=== PATIENT | female | born 1995 | race Caucasian/White ===

== ENCOUNTER 2021-03-17 13:40 | Inpatient (IN) | payer OTHER ==
[~2021-03-17 13:40] MED LIST: Bupivacaine 0.25% 10 ML SDV ONE; Lidocaine 1.5% with EPINEPHrine 1:200,000 5 ML Amp ONE
--- NOTE | 2021-03-17 15:11 | US ---
Limited obstetrical ultrasound: Multiple real-time images were obtained transabdominally. Comparison: No prior obstetrical imaging is available. Dates: Current ultrasound: DANIKA 07/24/21, gestational age 21 weeks 4 days presentation: Cephalic Placenta: Anterior with no findings of placenta previa Amniotic fluid: ARMOND 6.45 cm Measurements: BPD: 5.18 cm - 21 weeks 5 days Head circumference: 18.63 cm - 21 weeks 0 days Abdominal circumference: 16.80 cm - 21 weeks 6 days Femur length: 3.64 cm - 21 weeks 4 days Estimated weight: 434 g (0 lbs. 15 oz.), estimated weight is at the 47th percentile Heart rate: No heart activity is seen and was evaluated 2 separate times during this exam. Other findings: Small pericardial effusion is seen. Impression: 1. Single intrauterine fetus currently cephalic in presentation. Dates as noted above. 2. No heart activity is seen. Small pericardial effusion is seen. Ordering physician was present at time of exam. Diagnostic code #5
[2021-03-17] MEDS ORDERED: Lidocaine 4% Crm 5 Gm with Transparent Dressing Kit TOP ONE (15:39)
[2021-03-17] MEDS ORDERED: Nalbuphine 10 MG/1 ML Vial IVPUSH PRN (15:51)
[2021-03-17] MEDS ORDERED: Oxytocin/Lactated Ringers 10 UNIT/1,000 ML BAG IV SCH (16:00)
--- NOTE | 2021-03-17 16:09 | PCM.LDHP ---
L&D History of Present Illness - General Date of Service: 03/17/21 Admit Problem/Dx: Patient Status Order with Admit Dx/Problem 03/17/21 13:51 Patient Status [ADT] Routine Admission Diagnosis/Problem Admission Diagnosis/Problem - History of Present Illness Introduction:: 25 year old at 22w2 here for cramping and slight spotting. Upon presentation no heart tones on doppler and ultrasound was consistent with that. Patient informed. Had been feeling movement until 2 days ago. PNC with Dr. Smith complicated by asthma and vulvodynia. Recent cellulitis. Fairly recent covid exposure with subsequent fever and no testing. Discussed antibody testing. - Related Data Allergies/Adverse Reactions: Allergies Allergy/AdvReac Type Severity Reaction Status Date / Time peanut Allergy Anaphylactic Verified 03/17/21 13:55 Shock Home Medications: Home Meds Pnv No.163/Iron/Folate No.10 [Pnv Tabs 20-1 Tablet] 1 each PO DAILY 03/17/21 [History] cephALEXin [Cephalexin] 500 mg PO Q12HR 03/17/21 [History] H&P Review of Systems - Review of Systems: Review Of Systems: See Below General: Reports: No Symptoms HEENT: Reports: No Symptoms Pulmonary: Reports: No Symptoms Cardiovascular: Reports: No Symptoms Gastrointestinal: Reports: No Symptoms Genitourinary: Reports: No Symptoms Musculoskeletal: Reports: No Symptoms Skin: Reports: No Symptoms Psychiatric: Reports: No Symptoms Neurological: Reports: No Symptoms Hematologic/Lymphatic: Reports: No Symptoms Immunologic: Reports: No Symptoms L&D Exam - Exam Exam: See Below - Vital Signs Vital Signs: Last Vital Signs Temp 37.4 C 03/17/21 13:51 Pulse 114 H 03/17/21 13:51 Resp 16 03/17/21 13:51 BP 121/74 03/17/21 13:51 Pulse Ox 100 03/17/21 13:51 Weight: 58.967 kg - OB Specific Contraction Intensity: Irritability Movement: Not Appreciated Heart Tones: Not [place] - Exam General: Alert, Oriented HEENT: Conjunctiva Clear, EACs Clear, PERRLA Neck: Supple, Trachea Midline Lungs: Clear to Auscultation Cardiovascular: Regular Rate GI/Abdominal Exam: Normal Bowel Sounds, Soft Rectal Exam: Normal Exam Genitourinary: Normal external exam Back Exam: Normal Inspection, Full Range of Motion Extremities: Normal Inspection, Normal Range of Motion Skin: Warm, Dry, Intact Neurological: Cranial Nerves Intact, Reflexes Equal Bilateral Psychiatric: Alert, Normal Affect, Normal Mood - Patient Data Lab Results Last 24 hrs: Laboratory Results - last 24 hr 03/17/21 Range/Units 13:53 Urine Color Yellow (Yellow) Urine Appearance Clear (Clear) Urine pH 7.0 (5.0-8.0) Ur Specific [place] 1.010 (1.005-1.030) Urine Protein Negative (Negative) Urine Glucose (UA) Negative (Negative) Urine Ketones Negative (Negative) Urine Occult Blood Trace-lysed H (Negative) Urine Nitrite Negative (Negative) Urine Bilirubin Negative (Negative) Urine Urobilinogen 0.2 (0.2-1.0) Ur Leukocyte Esterase Negative (Negative) Urine RBC 5-10 H (0-5) /hpf Urine WBC 0-5 (0-5) /hpf Ur Epithelial Cells 10-20 H (0-5) /hpf Urine Bacteria Few (FEW) /hpf Urine Mucus Not seen (FEW) /hpf Problem List Initiated/Reviewed/Updated: Yes Orders Last 24hrs: Active Orders 24 hr Category Date Time Status Patient Status [ADT] Routine ADT 03/17/21 13:51 Active Activity as Tolerated [RC] PFP Care 03/17/21 15:52 Ordered Communication Order [RC] ASDIRECTED Care 03/17/21 15:52 Ordered Heart Tones [RC] ASDIRECTED Care 03/17/21 16:01 Ordered Notify Provider [RC] PFP Care 03/17/21 15:52 Ordered Notify Provider [RC] PRN Care 03/17/21 15:52 Ordered Peripheral IV Care [RC] . DIRECTED Care 03/17/21 16:01 Ordered Vital Signs [RC] PER UNIT ROUTINE Care 03/17/21 13:51 Active Vital Signs [RC] PER UNIT ROUTINE Care 03/17/21 15:52 Ordered Regular Diet [DIET] Diet 03/17/21 Breakfast Ordered A1C [GLYCOSYLATED HEMOGLOBIN,HGBA1C] [CHEM] Routine Lab 03/17/21 15:46 Ordered ANTICARDIOLIPIN AB, IGG/M, QN [REF] Stat Lab 03/17/21 15:45 Ordered BETA-2 GLYCOPROTEIN I AB,G/M [REF] Stat Lab 03/17/21 15:46 Ordered CBC WITH MANUAL DIFF [HEME] Stat Lab 03/17/21 15:49 Ordered CMP [COMPREHENSIVE METABOLIC PN,CMP] [CHEM] Routine Lab 03/17/21 15:50 Ordered CORONAVIRUS COVID-19 PAMELA [MOLEC] Stat Lab 03/17/21 16:01 Ordered DRUG SCREEN, URINE [URCHEM] Stat Lab 03/17/21 15:42 Ordered FIBRINOGEN [COAG] Routine Lab 03/17/21 15:50 Ordered INR,PT,PROTHROMBIN TIME [COAG] Routine Lab 03/17/21 15:50 Ordered LUPUS ANTICOAGULANT PANEL [REF] Stat Lab 03/17/21 15:44 Ordered PTT,PARTIAL THROMBOPLSTIN TIME [COAG] Routine Lab 03/17/21 15:50 Ordered RAPID PLASMA REAGIN,RPR [CHEM] Routine Lab 03/17/21 15:43 Ordered [id number]-SCI AB [REF] Stat Lab 03/17/21 15:41 Ordered TYPE AND SCREEN [BBK] AM Lab 03/17/21 05:11 Ordered TYPE AND SCREEN [BBK] AM Lab 03/18/21 05:11 Ordered Lactated Ringers [Ringers, Lactated] 1,000 ml Med 03/17/21 16:00 Ordered IV ASDIRECTED Nalbuphine [Nubain] Med 03/17/21 15:51 Ordered 10 mg IVPUSH Q2H PRN Oxytocin/Lactated Ringers [Pitocin in LR 10 Units/1,000 Med 03/17/21 16:00 Ordered ML] 10 unit in 1,000 ml IV .CONTINUOUS Sodium Chloride 0.9% [Saline Flush] Med 03/17/21 21:00 Ordered 10 ml FLUSH 0900,2100 miSOPROStoL [Cytotec] Med 03/17/21 16:02 Ordered 400 mcg VAG Q3HR Electronic Heart Tones Ext w TOCO [WOMSER] Oth 03/17/21 15:52 Ordered Routine Electronic Heart Tones Internal [WOMSER] Per Unit Oth 03/17/21 15:52 Ordered Routine Peripheral IV Insertion Adult [OM.PC] Routine Oth 03/17/21 15:52 Ordered Resuscitation Status Routine Resus Stat 03/17/21 13:51 Ordered Medication Orders Lactated Ringer's (Ringers, Lactated) 1,000 mls @ 100 mls/hr IV ASDIRECTED ADITYA Oxytocin/Lactated Ringer's (Pitocin In Lr 10 Units/1,000 Ml) 10 unit in 1,000 mls @ 100 mls/hr IV .CONTINUOUS ADITYA Misoprostol (Misoprostol 25 Mcg (1/4 Of 100 Mcg) Tab) 400 mcg VAG Q3HR [facility] Nalbuphine HCl (Nalbuphine 10 Mg/1 Ml Vial) 10 mg IVPUSH Q2H PRN PRN Reason: Pain Sodium Chloride (Sodium Chloride 0.9% 10 Ml Syringe) 10 ml FLUSH 0900,2100 [facility] Assessment/Plan Comment:: Discussed evaluation for still . Ordered extensive laboratory. Kit for eval in lab fridge. Plan induction today. Discussed options. Cytotec 400 mcg q3
[2021-03-17] MEDS ORDERED: Misoprostol 200 MCG Tab ONE (16:18)
[2021-03-17] MEDS ORDERED: LORazepam 2 MG/ML SDV ONE (16:45)
[2021-03-17] MEDS: LORazepam 2 MG/ML SDV IVPUSH PRN ×2 (16:49→20:43)
[2021-03-17] MEDS: Misoprostol 25 MCG (1/4 of 100 MCG) Tab VAG SCH ×2 (18:50→23:48)
[2021-03-17] MEDS: Lactated Ringers 1,000 ML IV SCH ×2 (19:41→21:57)
[2021-03-17] MEDS ORDERED: ePHEDrine 50 MG/ML SDV IVPUSH PRN (20:23)
[2021-03-17] MEDS ORDERED: fentaNYL 100 MCG/2 ML SDV EPIDUR PRN (20:23)
[2021-03-17] MEDS ORDERED: diphenhydrAMINE 50 MG/ML SDV IVPUSH PRN (20:23)
[2021-03-17] MEDS ORDERED: Bupivacaine/fentaNYL/NS 100 ML Bag EPIDUR PRN (20:23)
[2021-03-17] MEDS ORDERED: Sodium Chloride 0.9% 10 ML Syringe FLUSH SCH (21:00)
--- NOTE | 2021-03-17 21:12 | PCM.PREANE ---
Preanesthetic Assessment - Procedure Proposed Procedure: Continuous labor epidural - Anesthesia/Transfusion/Family Hx Anesthesia History: No Prior Anesthesia Transfusion History: No Prior Transfusion(s) - Review of Systems General: No Symptoms Pulmonary: No Symptoms Cardiovascular: No Symptoms Gastrointestinal: No Symptoms Neurological: No Symptoms Other: Reports: None - Physical Assessment Vital Signs: Last Vital Signs Temp 99.3 F 03/17/21 13:51 Pulse 114 H 03/17/21 13:51 Resp 16 03/17/21 13:51 BP 121/74 03/17/21 13:51 Pulse Ox 100 03/17/21 13:51 Height: 1.65 m Weight: 58.967 kg ASA Class: 2 Mental Status: Alert & Oriented x3 Airway Class: Mallampati = 1 Dentition: Reports: Normal Dentition Thyro-Mental Finger Breadths: 3 Mouth Opening Finger Breadths: 3 ROM/Head Extension: Full Lungs: Clear to Auscultation, Normal Respiratory Effort Cardiovascular: Regular Rate, Regular Rhythm - Lab Values: Laboratory Last Values WBC 11.37 K/mm3 (3.98-10.04) H 03/17/21 16:16 RBC 4.38 M/mm3 (3.98-5.22) 03/17/21 16:16 Hgb 13.6 gm/dl (11.2-15.7) 03/17/21 16:16 Hct 39.2 % (34.1-44.9) 03/17/21 16:16 MCV 89.5 fl (79.4-94.8) 03/17/21 16:16 MCH 31.1 pg (25.6-32.2) 03/17/21 16:16 MCHC 34.7 g/dl (32.2-35.5) 03/17/21 16:16 RDW Std Deviation 39.9 fL (36.4-46.3) 03/17/21 16:16 Plt Count 247 K/mm3 (182-369) 03/17/21 16:16 MPV 9.2 fl (9.4-12.3) L 03/17/21 16:16 Neutrophils % (Manual) 80 % (40-60) H 03/17/21 16:16 Band Neutrophils % 1 % (0-10) 03/17/21 16:16 Lymphocytes % (Manual) 9 % (20-40) L 03/17/21 16:16 Atypical Lymphs % 8 % 03/17/21 16:16 Monocytes % (Manual) 2 % (2-10) 03/17/21 16:16 Eosinophils % (Manual) 0 % (0.7-5.8) L 03/17/21 16:16 Basophils % (Manual) 0 (0.1-1.2) L 03/17/21 16:16 Platelet Estimate Adequate 03/17/21 16:16 Plt Morphology Comment Normal 03/17/21 16:16 Polychromasia 1+ slight 03/17/21 16:16 RBC Morph Comment Not Reportable 03/17/21 16:16 PT 9.8 SECONDS (9.7-12.0) 03/17/21 16:16 INR < 0.93 03/17/21 16:16 APTT 27.5 SECONDS (21.7-31.4) 03/17/21 16:16 Fibrinogen 328 mg/dL (187-446) 03/17/21 16:16 Sodium 141 mEq/L (136-145) 03/17/21 16:16 Potassium 3.1 mEq/L (3.5-5.1) L 03/17/21 16:16 Chloride 104 mEq/L (98-107) 03/17/21 16:16 Carbon Dioxide 27 mEq/L (21-32) 03/17/21 16:16 Anion Gap 13.1 (5-15) 03/17/21 16:16 BUN 6 mg/dL (7-18) L 03/17/21 16:16 Creatinine 0.8 mg/dL (0.55-1.02) 03/17/21 16:16 Est Cr Clr Drug Dosing 96.73 mL/min 03/17/21 16:16 Estimated GFR (MDRD) > 60 mL/min (>60) 03/17/21 16:16 BUN/Creatinine Ratio 7.5 (14-18) L 03/17/21 16:16 Glucose 92 mg/dL (70-99) 03/17/21 16:16 Hemoglobin A1c 5.0 % (-5.6) 03/17/21 16:16 Calcium 8.0 mg/dL (8.5-10.1) L 03/17/21 16:16 Total Bilirubin 0.5 mg/dL (0.2-1.0) 03/17/21 16:16 AST 28 U/L (15-37) 03/17/21 16:16 ALT 24 U/L (14-59) 03/17/21 16:16 Alkaline Phosphatase 104 U/L (46-116) 03/17/21 16:16 Total Protein 7.0 g/dl (6.4-8.2) 03/17/21 16:16 Albumin 3.3 g/dl (3.4-5.0) L 03/17/21 16:16 Globulin 3.7 gm/dL 03/17/21 16:16 Albumin/Globulin Ratio 0.9 (1-2) L 03/17/21 16:16 Urine Color Yellow (Yellow) 03/17/21 13:53 Urine Appearance Clear (Clear) 03/17/21 13:53 Urine pH 7.0 (5.0-8.0) 03/17/21 13:53 Ur Specific [place] 1.010 (1.005-1.030) 03/17/21 13:53 Urine Protein Negative (Negative) 03/17/21 13:53 Urine Glucose (UA) Negative (Negative) 03/17/21 13:53 Urine Ketones Negative (Negative) 03/17/21 13:53 Urine Occult Blood Trace-lysed (Negative) H 03/17/21 13:53 Urine Nitrite Negative (Negative) 03/17/21 13:53 Urine Bilirubin Negative (Negative) 03/17/21 13:53 Urine Urobilinogen 0.2 (0.2-1.0) 03/17/21 13:53 Ur Leukocyte Esterase Negative (Negative) 03/17/21 13:53 Urine RBC 5-10 /hpf (0-5) H 03/17/21 13:53 Urine WBC 0-5 /hpf (0-5) 03/17/21 13:53 Ur Epithelial Cells 10-20 /hpf (0-5) H 03/17/21 13:53 Urine Bacteria Few /hpf (FEW) 03/17/21 13:53 Urine Mucus Not seen /hpf (FEW) 03/17/21 13:53 SARS-CoV-2 RNA (PAMELA) Positive (NEGATIVE) H 03/17/21 15:25 Blood Type O POSITIVE 03/17/21 16:16 Gel Antibody Screen Negative 03/17/21 16:16 - Allergies Allergies/Adverse Reactions: Allergies Allergy/AdvReac Type Severity Reaction Status Date / Time peanut Allergy Anaphylactic Verified 03/17/21 13:55 Shock - Acknowledgements Anesthesia Type Planned: Epidural Pt an Appropriate Candidate for the Planned Anesthesia: Yes Alternatives and Risks of Anesthesia Discussed w Pt/Guardian: Yes Pt/Guardian Understands and Agrees with Anesthesia Plan: Yes PreAnesthesia Questionnaire Respiratory History: Reports: Asthma Gastrointestinal History: Reports: None GREENSKEEPER History: Reports: , Other (See Below) Other OB/BYN History: vulvodynia Musculoskeletal History: Reports: Other (See Below) (Marked levorotated scoliosis) Psychiatric History: Reports: Anxiety Dermatologic History: Reports: Cellulitis - Past Surgical History Other Respiratory Surgeries/Procedures: last used inhaler 5 months ago - SUBSTANCE USE Tobacco Use Status *Q: Former Tobacco User Tobacco Use Within Last Twelve Months: Vaping Second Hand Smoke Exposure: No Recreational Drug Use History: No - HOME MEDS Home Medications: Home Meds Pnv No.163/Iron/Folate No.10 [Pnv Tabs 20-1 Tablet] 1 each PO DAILY 03/17/21 [History] cephALEXin [Cephalexin] 500 mg PO Q12HR 03/17/21 [History] - CURRENT (IN HOUSE) MEDS Current Meds: Current Medications Diphenhydramine HCl (Diphenhydramine 50 Mg/Ml Sdv) 25 mg IVPUSH Q6H PRN PRN Reason: pruritis Ephedrine Sulfate (Ephedrine 50 Mg/Ml Sdv) 5 mg IVPUSH ASDIRECTED PRN PRN Reason: Hypotension Fentanyl (Fentanyl 100 Mcg/2 Ml Sdv) 100 mcg EPIDUR Q3H PRN PRN Reason: Pain Last Admin: 03/17/21 20:36 Dose: 100 mcg Documented by: Fentanyl/Bupivacaine HCl (Bupivacaine/Fentanyl/Ns 100 Ml Bag) 100 ml EPIDUR ASDIRECTED PRN PRN Reason: Pain Last Admin: 03/17/21 20:37 Dose: 100 ml Documented by: Lactated Ringer's (Ringers, Lactated) 1,000 mls @ 100 mls/hr IV ASDIRECTED ADITYA Last Admin: 03/17/21 19:41 Dose: 100 mls/hr Documented by: Oxytocin/Lactated Ringer's (Pitocin In Lr 10 Units/1,000 Ml) 10 unit in 1,000 mls @ 100 mls/hr IV .CONTINUOUS ADITYA Lorazepam (Lorazepam 2 Mg/Ml Sdv) 2 mg IVPUSH Q4H PRN PRN Reason: Anxiety Last Admin: 03/17/21 20:43 Dose: 2 mg Documented by: Misoprostol (Misoprostol 25 Mcg (1/4 Of 100 Mcg) Tab) 400 mcg VAG Q3H ADITYA Nalbuphine HCl (Nalbuphine 10 Mg/1 Ml Vial) 10 mg IVPUSH Q2H PRN PRN Reason: Pain Last Admin: 03/17/21 19:04 Dose: 10 mg Documented by: Sodium Chloride (Sodium Chloride 0.9% 10 Ml Syringe) 10 ml FLUSH 0900,2100 ADITYA Discontinued Medications Lidocaine HCl (Lidocaine 4% Crm 5 Gm With Transparent Dressing Kit) 1 each TOP ASDIRECTED ONE Stop: 03/17/21 15:40 Last Admin: 03/17/21 15:53 Dose: 1 dose Documented by: Lorazepam (Lorazepam 2 Mg/Ml Sdv) Confirm Administered Dose 2 mg .ROUTE .STK-MED ONE Stop: 03/17/21 16:46 Last Admin: 03/17/21 17:32 Dose: Not Given Documented by: Misoprostol (Misoprostol 25 Mcg (1/4 Of 100 Mcg) Tab) 400 mcg VAG Q3HR ADITYA Last Admin: 03/17/21 18:50 Dose: Not Given Documented by: Misoprostol (Misoprostol 200 Mcg Tab) Confirm Administered Dose 400 mcg .ROUTE .STK-MED ONE Stop: 03/17/21 16:19 Last Admin: 03/17/21 17:13 Dose: 400 mcg Documented by:
--- NOTE | 2021-03-17 23:06 | PCM.SN.2 ---
- Free Text/Narrative Note: Stage I - Patient presented with cramping and demise. Cytotec 400 mcg vaginally. Epidural for anesthesia. STage II - of intact fetus 2120. Cord clamped and cut. Minimal bleeding. Weight and measurements pending. 600 mcg rectal cytotec STage III - of intact placenta 2220. To pathology.
[2021-03-17] MEDS ORDERED: Witch Hazel Medicated Pads 40/Jar TOP PRN (23:45)
[2021-03-17] MEDS ORDERED: Ibuprofen 600 MG Tab PO PRN (23:45)
[2021-03-17] MEDS ORDERED: Benzocaine/Menthol 20%-0.5% Spray 78 GM Cannister TOP PRN (23:45)
[2021-03-17] MEDS ORDERED: Acetaminophen/oxyCODONE 325-5 MG Tab PO PRN (23:45)
[2021-03-18] MEDS: Acetaminophen/oxyCODONE 325-5 MG Tab PO PRN ×3 (00:27→11:33)
[2021-03-18] MEDS ORDERED: Misoprostol 200 MCG Tab RECTAL ONE (03:15)
--- NOTE | 2021-03-18 09:37 | PCM.TH.SN ---
- Free Text/Narrative Note: Procedure note: Procedure: Biopsy of the right anterior thigh of the fetus to obtain tissue for chromosomal MicroArray evaluation and other testing as indicated. Upon request of the patient a sample of tissue was obtained from the right anterior thigh of the baby. Appropriate documents/consents were signed. Visual evaluation of the baby showed no evidence of potential cause of the demise. For delivering physician there is no evidence of cord accident or other apparent etiology of the demise. After discussions held with patient concerning attaining specimen from the anterior thigh of the fetus the specimens obtained. The anterior thigh is prepped in usual fashion with water. No Betadine or other antiseptic solution was used. Using a scalpel the tissue from the anterior thigh including skin, subcutaneous, fascial and muscle tissue was obtained. Approximately 1 cm x 2-3 cm of tissue was obtained. This was placed in the dilution accompanying the kit. These tissues will be sent for chromosomal MicroArray evaluation and other testing as indicated. TeleHealth - TeleHealth Patient Service Facility: [facility]: [facility] Informed Consent: Telemedicine Audio/Visual Informed Consent: The risks, benefits, and alternatives to the telehealth visit were explained to the patient and the patient consented to this modality of care. The telehealth visit was carried out via a secure, web-based conferencing system. This telemedicine service was a real-time, two-way interactive video and communication between the patient and the provider. All the parties involved were identified and approved by the patient prior to the visit. Any physical exam was assisted by the patient. Unless noted otherwise, the provider was located at their usual clinic location, and the patient was at their place of residence. Patient identity was confirmed by having the patient state their name and date of . All communications with the patient (verbal, audiovisual, and written) were documented in the patients medical record per documentation standards.
--- NOTE | 2021-03-18 09:44 | PCM.DCSUM1 ---
Discharge Summary - Hospital Course Free Text/Narrative:: Celine was admitted on 03/17/2021 with slight vaginal bleeding. heart tones were not obtained and ultrasound confirmed demise. Estimated gestational age 22 weeks. Discussion was held with patient concerning delivery of the baby which would include Cytotec induction. She agreed to this and this was accomplished. Stage I - Patient presented with cramping and demise. Cytotec 400 mcg vaginally. Epidural for anesthesia. Stage II - of intact fetus 2120. Cord clamped and cut. Minimal bleeding. Weight and measurements pending. 600 mcg rectal cytotec Stage III - of intact placenta 2220. To pathology. patient appears to be doing as well as possible concerning the emotional aspect of this. She appears to be grieving appropriately. She is asking for some medication for anxiety. She does not feel she needs anything for depression. Presently she is on vitamins and cephalexin for dermatitis. Discharge instructions are given. Discussions held with patient as to potential causes of demise/stillbirth when apparent etiology is identified. She is agreed to undergo blood testing and tissue sampling to attempt to determine potential cause. Consent is signed and biopsy of the right anterior thigh is accomplished for this specimen. Discharge instructions: 1. Discharge home 2. Diet, activity and follow-up discussed with patient. 3. Precautions given concern increased pain, bleeding, temperature, signs/symptoms of DVT/PE. 4. Medications per home medication list was printed, discussed with and given to the patient. 5. Return to clinic-[facility]. [facility] in 1 weeks. Diagnosis: 22-week demisedelivered. Etiology of demise not identified. Condition: Good. Grieving appears appropriate. Diagnosis: Stroke: No - Discharge Data Discharge Date: 03/18/21 Discharge Disposition: Home, Self-Care 01 Condition: Good - Referral to Home Health Primary Care Physician: PCP None - Discharge Diagnosis/Problem(s) (1) 22 weeks gestation of SNOMED Code(s): 74741053 ICD Code: Z3A.22 - 22 WEEKS GESTATION OF Status: Acute Current Visit: Yes (2) demise SNOMED Code(s): 295805728 ICD Code: [id number] - Status: Acute Current Visit: Yes (3) COVID SNOMED Code(s): 672898759 ICD Code: U07.1 - COVID-19 Status: Acute Current Visit: Yes - Patient Instructions Diet: Usual Diet as Tolerated Activity: As Tolerated (No intercourse or tampons until bleeding resolves) Driving: May Drive Today Showering/Bathing: May Shower (May take a bath) Notify Provider of: Fever, Increased Pain, Drainage, Nausea and/or Vomiting Other/Special Instructions: Patient to monitor emotional status closely. Will call if depression or significant anxiety occurs. Mother will be with her to oversee her status. - Discharge Plan Prescriptions/Med Rec: LORazepam [Ativan] 0.5 mg PO DAILY PRN #5 tablet PRN Reason: Anxiety Home Medications: Home Meds Pnv No.163/Iron/Folate No.10 [Pnv Tabs 20-1 Tablet] 1 each PO DAILY 03/17/21 [History] cephALEXin [Cephalexin] 500 mg PO Q12HR 03/17/21 [History] Ibuprofen [Motrin] 600 mg PO Q6H PRN tablet 03/18/21 [Rx] LORazepam [Ativan] 0.5 mg PO DAILY PRN #5 tablet 03/18/21 [Rx] - Discharge Summary/Plan Comment DC Time >30 min.: No Total # of Minutes for Discharge Time: 20 Discharge Summary/Plan Comment: Discharge instructions: 1. Discharge home 2. Diet, activity and follow-up discussed with patient. 3. Precautions given concern increased pain, bleeding, temperature, signs/symptoms of DVT/PE. Also signs of depression or significant anxiety. 4. Medications per home medication was printed, discussed with and given to the patient. 5. Return to clinic-[facility]. [facility] in weeks. Diagnosis: 22-week demisedelivered. Etiology of demise not identified Condition: Goodpatient appears to be grieving appropriately. - Patient Data Vitals - Most Recent: Last Vital Signs Temp 37.4 C 03/18/21 07:33 Pulse 91 03/18/21 07:33 Resp 16 03/18/21 07:33 BP 117/74 03/18/21 07:33 Pulse Ox 99 03/18/21 07:33 Weight - Most Recent: 58.967 kg I&O - Last 24 hours: Intake & Output 03/17/21 03/18/21 03/18/21 22:59 06:59 14:59 Intake Total 600 3000 Output Total 50 Balance 600 2950 Lab Results - Last 24 hrs: Laboratory Results - last 24 hr 03/17/21 03/17/21 03/17/21 Range/Units 13:53 13:53 15:25 WBC (3.98-10.04) K/mm3 RBC (3.98-5.22) M/mm3 Hgb (11.2-15.7) gm/dl Hct (34.1-44.9) % MCV (79.4-94.8) fl MCH (25.6-32.2) pg MCHC (32.2-35.5) g/dl RDW Std Deviation (36.4-46.3) fL Plt Count (182-369) K/mm3 MPV (9.4-12.3) fl Neutrophils % (Manual) (40-60) % Band Neutrophils % (0-10) % Lymphocytes % (Manual) (20-40) % Atypical Lymphs % % Monocytes % (Manual) (2-10) % Eosinophils % (Manual) (0.7-5.8) % Basophils % (Manual) (0.1-1.2) Platelet Estimate Plt Morphology Comment Polychromasia RBC Morph Comment PT (9.7-12.0) SECONDS INR APTT (21.7-31.4) SECONDS Fibrinogen (187-446) mg/dL Sodium (136-145) mEq/L Potassium (3.5-5.1) mEq/L Chloride (98-107) mEq/L Carbon Dioxide (21-32) mEq/L Anion Gap (5-15) BUN (7-18) mg/dL Creatinine (0.55-1.02) mg/dL Est Cr Clr Drug Dosing mL/min Estimated GFR (MDRD) (>60) mL/min BUN/Creatinine Ratio (14-18) Glucose (70-99) mg/dL Hemoglobin A1c ( - 5.6) % Calcium (8.5-10.1) mg/dL Total Bilirubin (0.2-1.0) mg/dL AST (15-37) U/L ALT (14-59) U/L Alkaline Phosphatase (46-116) U/L Total Protein (6.4-8.2) g/dl Albumin (3.4-5.0) g/dl Globulin gm/dL Albumin/Globulin Ratio (1-2) Urine Color Yellow (Yellow) Urine Appearance Clear (Clear) Urine pH 7.0 (5.0-8.0) Ur Specific [place] 1.010 (1.005-1.030) Urine Protein Negative (Negative) Urine Glucose (UA) Negative (Negative) Urine Ketones Negative (Negative) Urine Occult Blood Trace-lysed H (Negative) Urine Nitrite Negative (Negative) Urine Bilirubin Negative (Negative) Urine Urobilinogen 0.2 (0.2-1.0) Ur Leukocyte Esterase Negative (Negative) Urine RBC 5-10 H (0-5) /hpf Urine WBC 0-5 (0-5) /hpf Ur Epithelial Cells 10-20 H (0-5) /hpf Urine Bacteria Few (FEW) /hpf Urine Mucus Not seen (FEW) /hpf Urine Opiates Screen Negative (WXJISU=163) Ur Buprenorphine Scrn Negative (CUTOFF=10) Ur Oxycodone Screen Negative (CWX8AP=706) Urine Methadone Screen Negative (LTEQDP=639) Ur Propoxyphene Screen Negative (CVTQCT=911) Ur Barbiturates Screen Negative (WNUVUX=809) Ur Tricyclics Screen Negative (ITDWFC=737) Ur Phencyclidine Scrn Negative (CUTOFF=25) Ur Amphetamine Screen Negative (SYVNNO=637) U Methamphetamines Scrn Negative (QYMXNP=857) U Benzodiazepines Scrn Negative (UXFLWC=731) U Cocaine Metab Screen Negative (JBVJEY=174) U Marijuana (THC) Screen Negative (CUTOFF=50) SARS-CoV-2 RNA (PAMELA) Positive H (NEGATIVE) Blood Type Gel Antibody Screen 03/17/21 03/17/21 03/17/21 Range/Units 16:16 16:16 16:16 WBC 11.37 H (3.98-10.04) K/mm3 RBC 4.38 (3.98-5.22) M/mm3 Hgb 13.6 (11.2-15.7) gm/dl Hct 39.2 (34.1-44.9) % MCV 89.5 (79.4-94.8) fl MCH 31.1 (25.6-32.2) pg MCHC 34.7 (32.2-35.5) g/dl RDW Std Deviation 39.9 (36.4-46.3) fL Plt Count 247 (182-369) K/mm3 MPV 9.2 L (9.4-12.3) fl Neutrophils % (Manual) 80 H (40-60) % Band Neutrophils % 1 (0-10) % Lymphocytes % (Manual) 9 L (20-40) % Atypical Lymphs % 8 % Monocytes % (Manual) 2 (2-10) % Eosinophils % (Manual) 0 L (0.7-5.8) % Basophils % (Manual) 0 L (0.1-1.2) Platelet Estimate Adequate Plt Morphology Comment Normal Polychromasia 1+ slight RBC Morph Comment Not Reportable PT (9.7-12.0) SECONDS INR APTT (21.7-31.4) SECONDS Fibrinogen (187-446) mg/dL Sodium (136-145) mEq/L Potassium (3.5-5.1) mEq/L Chloride (98-107) mEq/L Carbon Dioxide (21-32) mEq/L Anion Gap (5-15) BUN (7-18) mg/dL Creatinine (0.55-1.02) mg/dL Est Cr Clr Drug Dosing mL/min Estimated GFR (MDRD) (>60) mL/min BUN/Creatinine Ratio (14-18) Glucose (70-99) mg/dL Hemoglobin A1c 5.0 ( - 5.6) % Calcium (8.5-10.1) mg/dL Total Bilirubin (0.2-1.0) mg/dL AST (15-37) U/L ALT (14-59) U/L Alkaline Phosphatase (46-116) U/L Total Protein (6.4-8.2) g/dl Albumin (3.4-5.0) g/dl Globulin gm/dL Albumin/Globulin Ratio (1-2) Urine Color (Yellow) Urine Appearance (Clear) Urine pH (5.0-8.0) Ur Specific [place] (1.005-1.030) Urine Protein (Negative) Urine Glucose (UA) (Negative) Urine Ketones (Negative) Urine Occult Blood (Negative) Urine Nitrite (Negative) Urine Bilirubin (Negative) Urine Urobilinogen (0.2-1.0) Ur Leukocyte Esterase (Negative) Urine RBC (0-5) /hpf Urine WBC (0-5) /hpf Ur Epithelial Cells (0-5) /hpf Urine Bacteria (FEW) /hpf Urine Mucus (FEW) /hpf Urine Opiates Screen (USWTKB=015) Ur Buprenorphine Scrn (CUTOFF=10) Ur Oxycodone Screen (QJE9MY=499) Urine Methadone Screen (OWMJXS=031) Ur Propoxyphene Screen (QCSKNS=969) Ur Barbiturates Screen (XYABOX=175) Ur Tricyclics Screen (JTEAFY=144) Ur Phencyclidine Scrn (CUTOFF=25) Ur Amphetamine Screen (GBJWHA=018) U Methamphetamines Scrn (ZTLUCI=413) U Benzodiazepines Scrn (DBMMLS=465) U Cocaine Metab Screen (ISHBPE=352) U Marijuana (THC) Screen (CUTOFF=50) SARS-CoV-2 RNA (PAMELA) (NEGATIVE) Blood Type O POSITIVE Gel Antibody Screen Negative 03/17/21 03/17/21 Range/Units 16:16 16:16 WBC (3.98-10.04) K/mm3 RBC (3.98-5.22) M/mm3 Hgb (11.2-15.7) gm/dl Hct (34.1-44.9) % MCV (79.4-94.8) fl MCH (25.6-32.2) pg MCHC (32.2-35.5) g/dl RDW Std Deviation (36.4-46.3) fL Plt Count (182-369) K/mm3 MPV (9.4-12.3) fl Neutrophils % (Manual) (40-60) % Band Neutrophils % (0-10) % Lymphocytes % (Manual) (20-40) % Atypical Lymphs % % Monocytes % (Manual) (2-10) % Eosinophils % (Manual) (0.7-5.8) % Basophils % (Manual) (0.1-1.2) Platelet Estimate Plt Morphology Comment Polychromasia RBC Morph Comment PT 9.8 (9.7-12.0) SECONDS INR < 0.93 APTT 27.5 (21.7-31.4) SECONDS Fibrinogen 328 (187-446) mg/dL Sodium 141 (136-145) mEq/L Potassium 3.1 L (3.5-5.1) mEq/L Chloride 104 (98-107) mEq/L Carbon Dioxide 27 (21-32) mEq/L Anion Gap 13.1 (5-15) BUN 6 L (7-18) mg/dL Creatinine 0.8 (0.55-1.02) mg/dL Est Cr Clr Drug Dosing 96.73 mL/min Estimated GFR (MDRD) > 60 (>60) mL/min BUN/Creatinine Ratio 7.5 L (14-18) Glucose 92 (70-99) mg/dL Hemoglobin A1c ( - 5.6) % Calcium 8.0 L (8.5-10.1) mg/dL Total Bilirubin 0.5 (0.2-1.0) mg/dL AST 28 (15-37) U/L ALT 24 (14-59) U/L Alkaline Phosphatase 104 (46-116) U/L Total Protein 7.0 (6.4-8.2) g/dl Albumin 3.3 L (3.4-5.0) g/dl Globulin 3.7 gm/dL Albumin/Globulin Ratio 0.9 L (1-2) Urine Color (Yellow) Urine Appearance (Clear) Urine pH (5.0-8.0) Ur Specific [place] (1.005-1.030) Urine Protein (Negative) Urine Glucose (UA) (Negative) Urine Ketones (Negative) Urine Occult Blood (Negative) Urine Nitrite (Negative) Urine Bilirubin (Negative) Urine Urobilinogen (0.2-1.0) Ur Leukocyte Esterase (Negative) Urine RBC (0-5) /hpf Urine WBC (0-5) /hpf Ur Epithelial Cells (0-5) /hpf Urine Bacteria (FEW) /hpf Urine Mucus (FEW) /hpf Urine Opiates Screen (KZZNRS=237) Ur Buprenorphine Scrn (CUTOFF=10) Ur Oxycodone Screen (QAS1DU=136) Urine Methadone Screen (LBPXHI=452) Ur Propoxyphene Screen (NBHDRI=840) Ur Barbiturates Screen (SGDGTW=874) Ur Tricyclics Screen (JXEDCA=279) Ur Phencyclidine Scrn (CUTOFF=25) Ur Amphetamine Screen (PGIKIL=449) U Methamphetamines Scrn (LXOQJZ=945) U Benzodiazepines Scrn (UUETCZ=037) U Cocaine Metab Screen (MBMETF=482) U Marijuana (THC) Screen (CUTOFF=50) SARS-CoV-2 RNA (PAMELA) (NEGATIVE) Blood Type Gel Antibody Screen Med Orders - Current: Current Medications Benzocaine/Menthol (Benzocaine/Menthol 20%-0.5% [place] 78 Gm Cannister) 0 gm TOP ASDIRECTED PRN PRN Reason: Perineal Comfort Measure Ibuprofen (Ibuprofen 600 Mg Tab) 600 mg PO Q6H PRN PRN Reason: Mild pain or fever Last Admin: 03/18/21 07:30 Dose: 600 mg Documented by: Oxycodone/Acetaminophen (Acetaminophen/Oxycodone 325-5 Mg Tab) 1 tab PO Q4H PRN PRN Reason: Pain (moderate 4-6) Last Admin: 03/18/21 07:30 Dose: 1 tab Documented by: Oxycodone/Acetaminophen (Acetaminophen/Oxycodone 325-5 Mg Tab) 2 tab PO Q4H PRN PRN Reason: Pain (severe 7-10) Witch Sarah (Witch Sarah Medicated Pads 40/Jar) 1 pad TOP ASDIRECTED PRN PRN Reason: Perineal Comfort Measure Discontinued Medications Bupivacaine HCl (Bupivacaine 0.25% 10 Ml Sdv) 10 ml .ROUTE .[facility] ONE Stop: 03/17/21 00:01 Diphenhydramine HCl (Diphenhydramine 50 Mg/Ml Sdv) 25 mg IVPUSH Q6H PRN PRN Reason: pruritis Ephedrine Sulfate (Ephedrine 50 Mg/Ml Sdv) 5 mg IVPUSH ASDIRECTED PRN PRN Reason: Hypotension Fentanyl (Fentanyl 100 Mcg/2 Ml Sdv) 100 mcg EPIDUR Q3H PRN PRN Reason: Pain Last Admin: 03/17/21 20:36 Dose: 100 mcg Documented by: Fentanyl/Bupivacaine HCl (Bupivacaine/Fentanyl/Ns 100 Ml Bag) 100 ml EPIDUR ASDIRECTED PRN PRN Reason: Pain Last Admin: 03/17/21 20:37 Dose: 100 ml Documented by: Lactated Ringer's (Ringers, Lactated) 1,000 mls @ 100 mls/hr IV ASDIRECTED ADITYA Last Admin: 03/17/21 21:57 Dose: 100 mls/hr Documented by: Oxytocin/Lactated Ringer's (Pitocin In Lr 10 Units/1,000 Ml) 10 unit in 1,000 mls @ 100 mls/hr IV .CONTINUOUS ADITYA Last Admin: 03/17/21 22:26 Dose: 100 mls/hr Documented by: Lidocaine HCl (Lidocaine 4% Crm 5 Gm With Transparent Dressing Kit) 1 each TOP ASDIRECTED ONE Stop: 03/17/21 15:40 Last Admin: 03/17/21 15:53 Dose: 1 dose Documented by: Lidocaine/Epinephrine (Lidocaine 1.5% With Epinephrine 1:200,000 5 Ml Amp) 5 ml .ROUTE .[facility]-MED ONE Stop: 03/17/21 00:01 Lorazepam (Lorazepam 2 Mg/Ml Sdv) 2 mg IVPUSH Q4H PRN PRN Reason: Anxiety Last Admin: 03/17/21 20:43 Dose: 2 mg Documented by: Lorazepam (Lorazepam 2 Mg/Ml Sdv) Confirm Administered Dose 2 mg .ROUTE .[facility]-MED ONE Stop: 03/17/21 16:46 Last Admin: 03/17/21 17:32 Dose: Not Given Documented by: Misoprostol (Misoprostol 25 Mcg (1/4 Of 100 Mcg) Tab) 400 mcg VAG Q3HR ADITYA Last Admin: 03/17/21 18:50 Dose: Not Given Documented by: Misoprostol (Misoprostol 200 Mcg Tab) Confirm Administered Dose 400 mcg .ROUTE .ST[facility]-MED ONE Stop: 03/17/21 16:19 Last Admin: 03/17/21 17:13 Dose: 400 mcg Documented by: Misoprostol (Misoprostol 25 Mcg (1/4 Of 100 Mcg) Tab) 400 mcg VAG Q3H ADITYA Last Admin: 03/17/21 23:48 Dose: Not Given Documented by: Misoprostol (Misoprostol 200 Mcg Tab) 600 mcg RECTAL ONETIME ONE Stop: 03/18/21 03:16 Last Admin: 03/17/21 21:45 Dose: 600 mcg Documented by: Nalbuphine HCl (Nalbuphine 10 Mg/1 Ml Vial) 10 mg IVPUSH Q2H PRN PRN Reason: Pain Last Admin: 03/17/21 19:04 Dose: 10 mg Documented by: Sodium Chloride (Sodium Chloride 0.9% 10 Ml Syringe) 10 ml FLUSH 0900,2100 ADITYA
[2021-03-18] MEDS ORDERED: LORazepam 0.5 MG Tab PO ONE (10:25)
== END 2021-03-18 11:45 | disposition home or self-care (01) | DRG 805 ==
LOC: JD.OBCHECK 13:40 → JD.OB 13:42 → JD.OBCHECK 13:47 → JD.OB 13:48 → OBSVTOIN 21:27
PROVIDERS: ADMIT Obstetrics & Gynecology; ATTEND Obstetrics & Gynecology
PROC: 10E0XZZ Delivery of Products of Conception, External Approach (ICD-10-PCS; principal; 2021-03-17)
PROC: 3E0P7VZ Introduction of Hormone into Female Reproductive, Via Natural or Artificial Opening (ICD-10-PCS; 2021-03-17)
PROC: 3E0R3BZ Introduction of Anesthetic Agent into Spinal Canal, Percutaneous Approach (ICD-10-PCS; 2021-03-17)
PROC: 0JBL0ZX Excision of Right Upper Leg Subcutaneous Tissue and Fascia, Open Approach, Diagnostic (ICD-10-PCS; 2021-03-17)
DX: O36.4XX0 Maternal care for intrauterine death, not applicable or unspecified (principal); U07.1 COVID-19; Z37.1 Single stillbirth; O98.52 Other viral diseases complicating childbirth; Z3A.22 22 weeks gestation of pregnancy
CPT/HCPCS: 01967; 36415; 51701; 59409; 76815; 76815-26; 80053; 80306; 81001; 83036; 85007; 85027; 85384; 85610; 85613; 85730; 86146; 86147; 86592; 86769; 86850; 86900; 86901; A9270-GY; J2060; J2300; J2590; J3010; J3490; J7120; U0002